=== PATIENT | female | born 1935 | race Caucasian/White ===

== ENCOUNTER 2018-05-10 13:45 | Emergency (ER) | payer OTHER, BC ==
[~2018-05-10] VITALS: Ht 160 cm; Wt 56.7 kg
--- NOTE | ~2018-05-10 | EKG ---
[place] [address] [facility] [place] [address] ELECTROCARDIOGRAM REPORT Name: Dana GARCIA Room #: DEP [facility]OSPITALYajaira#: [id number] Admission: 05/10/18 Attend Phys: Discharge: 05/10/18 Date of : 31 Report #: [id number] THIS REPORT FOR: //name// [facility] ED Test Date: 2018-05-10 Test Time: 14:05:11 Pat Name: Dana GARCIA Department: Room: Gender: F Airline Mechanic: : [id number] Requested By: Francisco J Flores Order Number: [id number] MD: Stephan Chavira Measurements Intervals [place] Rate: 64 P: -29 [place]: 171 QRS: -32 QRSD: 96 T: 16 QT: 418 QTc: 432 Interpretive Statements Sinus rhythm Left axis deviation Low voltage, precordial leads No previous ECG available for comparison Electronically Signed On 05-11-2018 8:06:39 FURNITURE REPAIR TECHNICIAN by Stephan Chavira [email or web address] <ELECTRONICALLY SIGNED> By: Stephan Chavira MD, [facility] 05/11/18 [id number] Stephan Chavira MD, FACC /EPI
[2018-05-10] MEDS ORDERED: SYNTHROID75 MCG PO (14:10)
[2018-05-10 14:38] LABS: BASOPHILS 1.1 % (0.0-2.0); EOSINOPHILS 1.4 % (0.0-3.0); HEMATOCRIT 43.2 % (37.0-47.0); HEMOGLOBIN 14.5 gm/dL (12.0-15.0); LYMPHOCYTES 33.6 % (24.0-44.0); MCH 28.5 pg (26.0-34.0); MCHC 33.6 g/dL (28.0-37.0); MCV 84.7 fL (80.0-100.0); MONOCYTES 6.5 % (1.0-8.0); PLATELET COUNT 217 thou/uL (150-400); POLYS 57.4 % (36.0-66.0); RDW 13.4 % (10.5-14.5)
[2018-05-10 14:44] LABS: ANION GAP 10 mmol/L (7-16); BUN 20 mg/dL (7-18); CALCIUM 9.7 mg/dL (8.5-10.1); CHLORIDE 102 mmol/L (98-107); CO2 28 mmol/L (21-32); CREATININE 0.8 mg/dL (0.6-1.0); GLUCOSE 100 mg/dL (74-106); POTASSIUM 3.6 mmol/L (3.5-5.1); SODIUM 140 mmol/L (136-145)
[2018-05-10 14:52] LABS: TROPONIN-I <0.06 ng/mL (<0.06)
== END 2018-05-10 17:35 | disposition home or self-care (01) ==
LOC: ER 13:45
PROVIDERS: Emergency Medicine
DX: R07.89 Other chest pain (principal); E03.9 Hypothyroidism, unspecified; Z88.2 Allergy status to sulfonamides